=== PATIENT | female | born 1955 | race Caucasian/White ===

== ENCOUNTER → 2016-11-01 | Outpatient (CLI) | payer BC ==
--- NOTE | 2016-11-02 09:28 | DI ---
XR WRIST COMPLETE MIN 3VW,11/01/2016 3:30 PM: Clinical History: Right wrist pain Previous Exam: December 17, 2012 Findings: 3 views of the right wrist are obtained, and demonstrate anatomic alignment without fractures. Surrou nding soft tissues are unremarkable except for some prominence overlying the distal right ulna. Impression: Normal right wrist.
== END ==
LOC: MOB RAD 15:19
PROVIDERS: ATTEND Nurse Practitioner Family
DX: M25.531 Pain in right wrist (principal); S63.501A Unspecified sprain of right wrist, initial encounter
CPT/HCPCS: 73110

== ENCOUNTER → 2017-02-02 | Outpatient (CLI) | payer BC | LOC: LAB 07:59 | PROVIDERS: ATTEND Nurse Practitioner Family | DX: R53.83 Other fatigue (principal); M25.562 Pain in left knee; M25.561 Pain in right knee; M79.1 Myalgia | CPT/HCPCS: 36415; 82024; 82533 ==